=== PATIENT | female | born 1985 | race Caucasian/White ===

== ENCOUNTER 2016-11-20 07:02 | Day surgery (SDC) | payer MEDICARE ==
[~2016-11-20 07:02] MED LIST: ASCORBIC ACID500 MG PO; BACTRIM DS TABL1 TAB PO; BENADRYL25 MG PO; BENTYL 20 MG TA20 MG PO; COUMADIN5 MG PO; DIOVAN80 MG PO; FERROUS SULFAT325 MG PO; FOLIC ACID1 MG PO; HYDROCODON-ACE1 EAC7 PO; IMURAN50 MG PO; LEVAQUIN250 MG PO; LEVAQUIN750 MG PO; LOVENOX40 MG/0.4 SC; MAG-OX 400 MG400 MG PO; NEORAL25 MG PO; NORMODYNE / TR200 MG PO; PERCOCET 5-3251 TAB PO; PREDNISONE5 MG PO; RENA-VITE TABL0.8 MG PO; RENAGEL800 MG PO; ROCALTROL0.25 MCG PO; SANDIMMUNE25 MG PO; SODIUM BICARBO650 MG PO; TRAZODONE HCL50 MG PO; VITAMIN B-12500 MC1 PO; VITAMIN D3400 UNI1 PO; VIVA DHA PRENAT1 CAP PO; ZETIA10 MG PO; ZOFRAN4 MG PO
[2016-11-20 08:07] LABS: BASOPHILS 0.2 % (0-2); EOSINOPHILS 2.7 % (0-7); HEMATOCRIT 30.1 % (36.0-48.0); IMMATURE GRANULOCYTES 1.4 % (0-5); LYMPHOCYTES 22.4 % (15-50); MCH 31.7 pg (26.0-34.0); MCHC 33.2 g/dL (31.0-37.0); MCV 95.6 fL (80.0-100.0); MEAN PLATELET VOLUME 8.3 fL (7.4-10.4); MONOCYTES 6.6 % (2-11); NEUTROPHILS 66.7 % (40-80); RBC 3.15 10x6/uL (4.00-5.40); RDW 13.1 % (11.5-14.5); WBC 12.6 10x3/uL (4.8-10.8)
[2016-11-20 08:12] LABS: PLATELET COUNT 326 10x3/uL (130-400)
[2016-11-20 08:21] LABS: INR 0.94 (0.85-1.17); PROTIME 12.4 SECONDS (11.6-15.0)
[2016-11-20 09:03] LABS: ANION GAP 20.9 mmol/L (8-16); CALCIUM 9.8 mg/dL (8.5-10.1); CARBON DIOXIDE 22.4 mmol/L (21.0-32.0); CREATININE - SERUM 13.7 mg/dL (0.6-1.3); POTASSIUM - SERUM 3.3 mmol/L (3.5-5.1)
[2016-11-20] MEDS ORDERED: HUMIRA20 MG/0.4 SQ (10:04)
[2016-11-20] MEDS ORDERED: K-TAB10 MEQ PO (10:05)
[2016-11-20] MEDS ORDERED: CELEXA10 MG PO (10:05)
[2016-11-20 10:14] VITALS: BP 140/90; BMI 37.5
[2016-11-20 10:36] LABS: HCG URINE NEGATIVE (NEGATIVE)
[2016-11-20] MEDS ORDERED: HYDROCODON-ACE1 EAC7 PO (17:17)
--- NOTE | 2016-11-20 19:23 | NUR ---
1845 IV DC WITH CATHER TIP INTACT
--- NOTE | 2016-11-24 09:36 | OP ---
PATIENT NAME: YADI FLORES MEDICAL RECORD: [id number] :84 LOCATION:[facility] ADMISSION DATE: SURGEON: JENELLE ISRAEL MD DATE OF OPERATION: 11/20/2016 PREOPERATIVE DIAGNOSES: End-stage renal disease and dependence on renal dialysis and chronically infected peritoneal dialysis catheter. OPERATION PERFORMED: Ultrasound-guided insertion of a 23-cm Arrow VectorFlow tunneled dialysis catheter under fluoroscopy via the left internal jugular vein and performance of a superior vena cavogram and then removal of infected peritoneal dialysis catheter. REFERRING PHYSICIAN: Dr. Huang SURGEON: Jenelle Israel MD PREOPERATIVE NOTE: Ms. Flores is a delightful 31-year-old white female, patient of Dr. Huang, who has end-stage renal disease and is on chronic peritoneal dialysis and has had multiple failures of attempts to create hemodialysis access. She has very small vessels and is rather obese, both of which complicate her problem. Fortunately, she has done quite well with peritoneal dialysis and at present is losing weight quite successfully in order to be a candidate for a kidney transplant. Her peritoneal dialysis has been recently complicated by staphylococcal infection and despite several courses of antibiotic therapy, she continues to have positive culture from her dialysis catheter. It is believed that this catheter will need to be removed and replaced in order to clear her infection. I am reluctant to remove her catheter and simply place another one at the same procedure and so I have told her that if possible I will place a hemodialysis catheter and she can do hemodialysis for a week or two and then depending on culture results from today's procedure and her clinical course, she can be returned to the operating room for a laparoscopic insertion of a new peritoneal dialysis catheter. DESCRIPTION OF PROCEDURE: Under general endotracheal anesthesia, the patient was prepped and draped in sterile manner. The neck was examined with the ultrasound. The right internal jugular vein is sclerotic and not usable from a supraclavicular approach at least. The left internal jugular vein was fully compressible, of normal caliber, and generally normal appearance sonographically. With continuous ultrasound guidance, a micropuncture needle and guidewire were placed in the internal jugular vein and under fluoroscopy, the guidewire advanced to the superior vena cava. A 7-Albanian introducer was inserted and a superior vena cavogram performed, which revealed no evidence of central venous obstruction or abnormal anatomy. Then over a guidewire, I passed dilators and eventually placed a 23-cm antegrade Arrow VectorFlow catheter. The tip of the catheter reached into the right atrium and both lumens functioned well on aspiration and flushing. The catheter was heparin locked. The cervical incision was closed with interrupted inverted 3-0 Vicryl and Dermabond glue and dressed with Maxorb Ag, Tegaderm, and Cavilon skin prep. The entry site was snugged up about the catheter with a single interrupted inverted 3-0 subcuticular Vicryl suture and the site there also sealed with glue and then dressed with a Biopatch and a standard central venous line dressing. The patient was then reprepped and redraped. The peritoneal dialysis catheter was palpated. An incision made vertically above the exit site and dissection OPERATIVE REPORT [id number] KATJA FLORESJaun Candelaria both blunt and electrocautery dissection was used to free the most superficial Dacron felt cuff from the skin and surrounding fatty tissues. There was no evidence of any purulence or infection along the deeper tract of the catheter. The deeper Dacron felt cuff was dissected from the rectus sheath and the catheter removed without difficulty. The deeper of the 2 Dacron felt cuffs was a bit slippery if not grossly slimy. There was no other evidence of infection. I did cut out that segment, which was about an inch in length, and sent it to the laboratory for culture. The fascial defect was closed with a [id number]-[id number] 0 Vicryl suture and the wound irrigated with Ancef-gentamicin solution and infiltrated with 0.25% Marcaine without epinephrine. The skin was closed with aleena and a sterile dressing applied. The patient was awakened from her anesthetic and taken to the recovery room. Blood loss during the operation was insignificant and unreplaced. All sponges, instruments, and needles were accounted for. No drain was used and no surgical specimen was submitted for histopathology. A short segment of the catheter, which included the deeper of the 2 Dacron felt cuffs, was sent for culture. Yadi will go home today and come back to see me in my office next week. We will arrange for her to start having hemodialysis in [place]. A chest x-ray has been requested in the recovery room and also will be keeping the head of her bed elevated and using an icepack on the right side of her neck off and on for the next few hours. She is given a prescription for [address] 5/325 ten tablets 1 p.o. every 4 hours p.r.n. pain. TRANSINT:[id number] Voice Confirmation ID: [id number] DOCUMENT ID: [id number] JENELLE ISRAEL MD at 0936 CC: LADAN CARCAMO MD and MINDY HUANG MD [id number] DICTATION DATE: 11/21/16 1008 PLATE AND FRAME FILTER OPERATOR: 11/21/16 1138 [facility] 11/20/[address] [address]
== END 2016-11-20 19:00 | disposition home or self-care (01) ==
LOC: D.OPS 07:02
PROVIDERS: Internal Medicine; Surgery
DX: T85.71XA Infection and inflammatory reaction due to peritoneal dialysis catheter, initial encounter (principal); B95.8 Unspecified staphylococcus as the cause of diseases classified elsewhere; N18.6 End stage renal disease; Z99.2 Dependence on renal dialysis; Z01.812 Encounter for preprocedural laboratory examination

== ENCOUNTER 2016-12-01 06:34 | Day surgery (SDC) | payer MEDICARE ==
[~2016-12-01 06:34] MED LIST changes: +CELEXA10 MG PO; +HUMIRA20 MG/0.4 SQ; +K-TAB10 MEQ PO
[2016-12-01 07:32] LABS: BASOPHILS 0.2 % (0-2); HEMATOCRIT 28.7 % (36.0-48.0); HEMOGLOBIN 9.4 g/dL (12-16); IMMATURE GRANULOCYTES 1.9 % (0-5); LYMPHOCYTES 20.3 % (15-50); MCH 32.9 pg (26.0-34.0); MCHC 32.8 g/dL (31.0-37.0); MCV 100.3 fL (80.0-100.0); MEAN PLATELET VOLUME 8.5 fL (7.4-10.4); MONOCYTES 6.7 % (2-11); NEUTROPHILS 68.9 % (40-80); RBC 2.86 10x6/uL (4.00-5.40); RDW 14.2 % (11.5-14.5); WBC 11.3 10x3/uL (4.8-10.8)
[2016-12-01 07:44] LABS: PLATELET COUNT 167 10x3/uL (130-400)
[2016-12-01 07:45] LABS: ANION GAP 14.3 mmol/L (8-16); CALCIUM 8.6 mg/dL (8.5-10.1); CARBON DIOXIDE 25.7 mmol/L (21.0-32.0); CREATININE - SERUM 6.2 mg/dL (0.6-1.3)
[2016-12-01 07:53] LABS: APTT 25.7 SECONDS (22.8-39.4)
[2016-12-01 09:03] VITALS: BP 120/69; BMI 37.3
[2016-12-01 09:07] LABS: HCG URINE NEGATIVE (NEGATIVE)
[2016-12-01] MEDS ORDERED: HYDROCODON-ACE1 EAC7 PO (12:36)
--- NOTE | 2016-12-01 14:19 | NUR ---
1345 IV DC WITH CATHER TIP INTACT
--- NOTE | 2016-12-01 14:20 | NUR ---
SPOKE WITH KWAN IVTAL ABOUT ORDERS
--- NOTE | 2016-12-04 08:26 | OP ---
PATIENT NAME: TRINIDAD FLORES MEDICAL RECORD: [id number] :84 LOCATION:[facility] ADMISSION DATE: SURGEON: JENELLE ISRAEL MD DATE OF OPERATION: 12/01/2016 PREOPERATIVE DIAGNOSES: End-stage renal disease and dependence on renal dialysis and polycystic kidney disease and hypertension and recent chronic infection of peritoneal dialysis catheter. POSTOPERATIVE DIAGNOSES: End-stage renal disease and dependence on renal dialysis and polycystic kidney disease and hypertension and recent chronic infection of peritoneal dialysis catheter. OPERATION PERFORMED: Laparoscopic insertion of peritoneal dialysis catheter. SURGEON: Jenelle Israel MD ANESTHESIA: General endotracheal per [facility] [employer] [employer]. REFERRING PHYSICIAN: Dr. Huang. PREOPERATIVE NOTE: Ms. Flores is a delightful 31-year-old white female patient with end-stage renal disease due to polycystic kidneys. She is obese and has small vessels, which have estimated difficult to construct a reliable hemodialysis access and all of this was complicated by a factor V Leiden thrombophilia. She has been doing well with peritoneal dialysis until the last few months when she had a persistent chronic staphylococcal infection, which did not resolve with several course of antibiotics. 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 She had a chronic axillary hidradenitis suppurativa. All that seems to be in much better now on Humira, but she really probably has never been cleared of staph. About 10 days ago, I operated her and removed her peritoneal catheter and did not replace at that time. I placed a HemoSplit internal jugular tunneled dialysis catheter, so that she could dialyze with that and abdomen have a little longer to clear. Cultures of the deep Dacron felt cuff from the recently removed, catheter did grow staph. There was at that time, there were no other visual or other evidence of infection within the abdomen. She has done well since then and now she is back. We are going to try to put in another PD catheter on the left side of her abdomen, although I do not plan to remove her HemoSplit catheter yet. She states that she has been told by Dr. Huang that she can begin 1000 cc low volume frequent peritoneal exchanges as early as tomorrow. I will wait and have her back to see me at [facility] about a week from this coming Wednesday, which should I think 12/10/2016 and if she is doing well at that time and not having problems with peritoneal dialysis, then I will remove her HemoSplit catheter there at [facility]. The patient was administered general endotracheal anesthesia, placed in supine position, prepped, draped in sterile manner. I entered the abdomen with the Optiview XL type 5-mm port and a 0-degree 5 mm diameter laparoscope in the right upper quadrant. A carbon dioxide was utilized to insufflate the abdomen and after that, a 30 degree angle and 5-mm scope was utilized and I was pleased to see that there were still no adhesions visible within the abdomen and that the site of the previous peritoneal dialysis catheter was healing well without evidence of infection grossly. I then made an incision on the left side just above the level of the umbilicus and about mid rectus and inserted a needle and OPERATIVE REPORT [id number] TRINIDAD FLORES guidewire directed inferiorly at an angle and then inserted a dilator peel-away introducer sheath and took a left-sided [place] neck dual cuff coil catheter inserted it through the peelaway sheath and removed the sheath. Using a hemostat, I then placed the deeper of the Dacron felt cuff in the substance of the rectus muscle just anterior to the peritoneum and it proved unnecessary to utilize another laparoscopic port. The exit site for the catheter was to be located lateral and somewhat superior to the original incision and the catheter was tunneled and brought out in that manner. It was flushed with saline and aspirated and seemed to function well. It was then filled with heparin lock solution 100 units per cc clamped and capped. The catheter was fixed to the skin near the entry site with quarter inch Steri-Strips and Mastisol and that site dressed with a Biopatch and Tegaderm and 4 x 4s Medipore Band-Aid dressing. The ports were removed and the incisions closed with interrupted inverted 3-0 Vicryl subcuticular sutures, but that was after the wounds were infiltrated and irrigated with 0.25% Marcaine. The incisions were sealed with Dermabond glue and dressed with Maxorb Ag, Tegaderm and Cavilon skin prep. The patient's HemoSplit catheter was undressed and examined and the site then dressed with a Biopatch and a central venous dressing. The patient was awakened and in stable condition, taken to the recovery room. Blood loss during the operation was trivial, none was replaced. All sponges, instruments and needles were accounted for. No drain was used and no surgical specimen was submitted for histopathology. TRANSINT:[id number] Voice Confirmation ID: [id number] DOCUMENT ID: [id number] JENELLE ISRAEL MD at 0826 CC: MINDY HUANG MD [id number] DICTATION DATE: 12/01/16 1231 INVESTMENT SALES ASSISTANT: 12/01/16 [facility] 12/01/16 [address] [place] [address]
== END 2016-12-01 14:15 | disposition home or self-care (01) ==
LOC: D.OPS 06:34
PROVIDERS: Internal Medicine; Surgery
DX: I12.0 Hypertensive chronic kidney disease with stage 5 chronic kidney disease or end stage renal disease (principal); N18.6 End stage renal disease; Z99.2 Dependence on renal dialysis; E66.01 Morbid (severe) obesity due to excess calories; Z68.37 Body mass index [BMI] 37.0-37.9, adult; Z01.812 Encounter for preprocedural laboratory examination

== ENCOUNTER 2017-12-09 16:29 | Inpatient (IN) | payer MEDICARE ==
[~2017-12-09] VITALS: Ht 152.4 cm; Wt 93.9 kg
--- NOTE | ~2017-12-09 | MORECARE ---
CASE MANAGEMENT DISCHARGE SUMMARY PATIENT: TRINIDAD FLORES UNIT: [id number] ADM DATE: 12/11/17 AGE: 32 : 84 SEX: F ROOM/BED: D.2134 AUTHOR: LARRY PERSAUD PHYSICIAN: REFERRING PHYSICIAN: BHAKTI GUEVARA MD DATE OF SERVICE: 12/12/17 Discharge Plan Patient Name: TRINIDAD FLORES [facility] [facility] 1985 Planned Disposition: Home Anticipated Discharge Date: 12/12/17 Discharge Date: Expected LOS: 1 Initial Reviewer: [email or web address] Initial Review Date: 12/09/2017 Generated: 12/12/17 5:15 pm DCPIA - Discharge Planning Initial Assessment Updated by [email or web address]: Mariana Flanagan on 12/12/17 4:14 pm * Is the patient Alert and Oriented? Yes * PCP NONE RENAL - DR GAGNON * Pharmacy [facility] IN [place] * Preadmission Environment Home with Family * ADLs Independent * Equipment Other * Other Equipment HOME PD EQUIPMENT * List name and contact numbers for known caregivers / representatives who currently or will assist patient after discharge: ISAAK FLORES- FATHER- [phone] * Verbal permission to speak to the caregivers and representatives has been obtained from the patient. No * Community resources currently utilized None * Please name any agencies selected above. N/A * Additional services required to return to the preadmission environment? No * Can the patient safely return to the preadmission environment? Yes * Has this patient been hospitalized within the prior 30 days at any hospital? No Last DP export: 12/12/17 3:08 Patient Name: TRINIDAD FLORES Page [id number] at 1615 All edits/amendments must be made on the electronic document DICTATION DATE: 12/12/171614 HOME CARE CONSULTANT: CLARIBEL 12/12/17 161 RPT#: [id number] DC DATE: STATUS: ADM IN [facility] [address] [place] [address] END OF REPORT
--- NOTE | ~2017-12-09 | MORECARE ---
CASE MANAGEMENT DISCHARGE SUMMARY PATIENT: TRINIDAD FLORES UNIT: [id number] ADM DATE: 12/11/17 AGE: 32 : 84 SEX: F ROOM/BED: D.7485 AUTHOR: CORIDOC PHYSICIAN: REFERRING PHYSICIAN: BHAKTI GUEVARA MD DATE OF SERVICE: 12/13/17 Discharge Plan Patient Name: TRINIDAD FLORES Facility[facility]:[place] : 1985 Planned Disposition: Home Anticipated Discharge Date: 12/12/17 Discharge Date: 12/12/2017 Expected LOS: 1 Initial Reviewer: [email or web address] Initial Review Date: 12/09/2017 Generated: 12/13/17 10:24 am Comments DCP- Discharge Planning Updated by [email or web address]: Mariana Flanagan on 12/12/17 3:[address] LATE ENTRY- 1300 CM MET WITH THE PATIENT AT HER BEDSIDE. SHE WAS HAVING LUNCH. PLANNING FOR DISCHARGE TO HOME. HAS SPOKEN WITH HER BOYFRIEND REGARDING TRANSPORTATION. SHE IA A PD PATIENT AT [facility]. DR GAGNON FOLLOW HER FOR RENAL. DENIES ANY NEEDS. FAMILY AND HER BOYFRIEND ASSIST IF NEEDED. SHE IS INDEPENDENT IN HER CARE. NO OUTSIDE SERVICES REQUIRED. SHE HAS ARRANGED TRANSPORTATION TO HOME THIS PM. DISCUSSED DISCHARGE IMM. SHE IS COGNIZANT OF IMM FORM. 1320 SIGNATURE OBTAINED AFTER HER LUNCH. COPY TO PATIENT. COPY TO PATIENT'S HARD CHART. DCPIA - Discharge Planning Initial Assessment Updated by [email or web address]: Mariana Flanagan on 12/12/17 4:14 pm * Is the patient Alert and Oriented? Yes * PCP NONE RENAL - DR GAGNON * Pharmacy [facility] IN [place] * Preadmission Environment Home with Family * ADLs Independent * Equipment Other * Other Equipment HOME PD EQUIPMENT * List name and contact numbers for known caregivers / representatives who currently or will assist patient after discharge: ISAAK FLORES- FATHER- [phone] * Verbal permission to speak to the caregivers and representatives has been obtained from the patient. No * Community resources currently utilized None * Please name any agencies selected above. N/A * Additional services required to return to the preadmission environment? No * Can the patient safely return to the preadmission environment? Yes * Has this patient been hospitalized within the prior 30 days at any hospital? No Last DP export: 12/12/17 3:22 Patient Name: TRINIDAD FLORES Page [id number] at 0924 All edits/amendments must be made on the electronic document DICTATION DATE: 12/13/17922 FUNERAL DIRECTOR AND EMBALMER: CLARIBEL 12/13/17922 RPT#: [id number] DC DATE:12/12/17 STATUS: DIS IN [facility] [address] [place] [address] END OF REPORT
--- NOTE | ~2017-12-09 | MORECARE ---
CASE MANAGEMENT DISCHARGE SUMMARY PATIENT: TRINIDAD FLORES UNIT: [id number] ADM DATE: 12/11/17 AGE: 32 : 84 SEX: F ROOM/BED: D.5890 AUTHOR: LARRY PERSAUD PHYSICIAN: REFERRING PHYSICIAN: BAHKTI GUEVARA MD DATE OF SERVICE: 12/12/17 Discharge Plan Patient Name: TRINIDAD FLORES Facility: [facility]:[place] : 1985 Planned Disposition: Home Anticipated Discharge Date: 12/12/17 Discharge Date: Expected LOS: 1 Initial Reviewer: [email or web address] Initial Review Date: 12/09/2017 Generated: 12/12/17 5:22 pm Comments DCP- Discharge Planning Updated by [email or web address]: Mariana Flanagan on 12/12/17 3:[address] LATE ENTRY- 1300 CM MET WITH THE PATIENT AT HER BEDSIDE. SHE WAS HAVING LUNCH. PLANNING FOR DISCHARGE TO HOME. HAS SPOKEN WITH HER BOYFRIEND REGARDING TRANSPORTATION. [facility] DR GAGNON FOLLOW HER FOR RENAL. DENIES ANY NEEDS. FAMILY AND HER BOYFRIEND ASSIST IF NEEDED. SHE IS INDEPENDENT IN HER CARE. NO OUTSIDE SERVICES REQUIRED. SHE HAS ARRANGED TRANSPORTATION TO HOME THIS PM. DISCUSSED DISCHARGE IMM. SHE IS COGNIZANT OF IMM FORM. 1320 SIGNATURE OBTAINED AFTER HER LUNCH. COPY TO PATIENT. COPY TO PATIENT'S HARD CHART. DCPIA - Discharge Planning Initial Assessment Updated by [email or web address]: Mariana Flanagan on 12/12/17 4:14 pm * Is the patient Alert and Oriented? Yes * PCP NONE RENAL - DR GAGNON * Pharmacy [facility] IN [place] * Preadmission Environment Home with Family * ADLs Independent * Equipment Other * Other Equipment HOME PD EQUIPMENT * List name and contact numbers for known caregivers / representatives who currently or will assist patient after discharge: ISAAK FLORES- FATHER- [phone] * Verbal permission to speak to the caregivers and representatives has been obtained from the patient. No * Community resources currently utilized None * Please name any agencies selected above. N/A * Additional services required to return to the preadmission environment? No * Can the patient safely return to the preadmission environment? Yes * Has this patient been hospitalized within the prior 30 days at any hospital? No Last DP export: 12/12/17 3:15 Patient Name: TRINIDAD FLORES Page [phone] at 1622 All edits/amendments must be made on the electronic document DICTATION DATE: 12/12/171620 RIVET MACHINE OPERATOR: CLARIBEL 12/12/171620 RPT#: [id number] DC DATE: STATUS: ADM IN [facility] [address] [place] [address] END OF REPORT
--- NOTE | ~2017-12-09 | MORECARE ---
CASE MANAGEMENT DISCHARGE SUMMARY PATIENT: TRINIDAD FLORES UNIT: [id number] ADM DATE: 12/11/17 AGE: 32 : 83 SEX: F ROOM/BED: D.2134 AUTHOR: LARRY PERSAUD PHYSICIAN: REFERRING PHYSICIAN: BHAKTI GUEVARA MD DATE OF SERVICE: 12/12/17 Discharge Plan Patient Name: TRINIDAD FLORES Facility: [facility]:[place] : 1985 Planned Disposition: Home Anticipated Discharge Date: 12/12/17 Discharge Date: Expected LOS: 1 Initial Reviewer: [email or web address] Initial Review Date: 12/09/2017 Generated: 12/12/17 5:08 pm Patient Name: TRINIDAD FLORES Page [phone] at 1608 All edits/amendments must be made on the electronic document DICTATION DATE: 12/12/171607 WOOD BARREL RECONDITIONER: CLARIBEL 12/12/171607 RPT#: [id number] DC DATE: STATUS: ADM IN [facility] [address] [place] [address] END OF REPORT
[2017-12-09 17:26] VITALS: BP 136/84
[2017-12-09] MEDS ORDERED: PREDNISONE2.5 MG PO (19:37)
[2017-12-09 20:49] VITALS: BP 135/85
[2017-12-10 01:18] VITALS: BP 127/83
[2017-12-10 05:47] LABS: HEMATOCRIT 25.2 % (36.0-48.0); HEMOGLOBIN 8.3 g/dL (12-16); LYMPHOCYTES 17.1 % (15-50); MCH 30.1 pg (26.0-34.0); MCHC 32.9 g/dL (31.0-37.0); MCV 91.3 fL (80.0-100.0); MEAN PLATELET VOLUME 8.1 fL (7.4-10.4); NEUTROPHILS 77.6 % (40-80); RBC 2.76 10x6/uL (4.00-5.40); RDW 13.7 % (11.5-14.5); WBC 6.8 10x3/uL (4.8-10.8)
[2017-12-10 05:48] LABS: PLATELET COUNT 305 10x3/uL (130-400)
[2017-12-10 05:55] LABS: CALCIUM 7.8 mg/dL (8.5-10.1); CARBON DIOXIDE 25.6 mmol/L (21.0-32.0); POTASSIUM - SERUM 3.6 mmol/L (3.5-5.1)
[2017-12-10 06:15] VITALS: BP 129/69
[2017-12-10 11:21] VITALS: BP 126/86
[2017-12-10 13:13] VITALS: BP 124/76
[2017-12-10 13:26] VITALS: Ht 152.4 cm; Wt 93.9 kg
[2017-12-10 14:49] VITALS: BP 131/85
[2017-12-10 19:22] LABS: EOS BF 1 %; MACROPHAGES BF 6 %; MESOTHELIALS BF 2 %; NEUT - BF 83 %
[2017-12-10 21:07] VITALS: BP 142/89
[2017-12-11] VITALS: BP 118/78
[2017-12-11 04:00] VITALS: BP 143/81
[2017-12-11 05:45] LABS: BASOPHILS 0.1 % (0-2); EOSINOPHILS 0.3 % (0-7); HEMATOCRIT 26.2 % (36.0-48.0); HEMOGLOBIN 8.5 g/dL (12-16); IMMATURE GRANULOCYTES 0.3 % (0-5); LYMPHOCYTES 5.4 % (15-50); MCH 29.6 pg (26.0-34.0); MCHC 32.4 g/dL (31.0-37.0); MCV 91.3 fL (80.0-100.0); MEAN PLATELET VOLUME 8.5 fL (7.4-10.4); MONOCYTES 4.5 % (2-11); NEUTROPHILS 89.4 % (40-80); PLATELET COUNT 346 10x3/uL (130-400); RBC 2.87 10x6/uL (4.00-5.40)
[2017-12-11 05:47] LABS: WBC 9.6 10x3/uL (4.8-10.8)
[2017-12-11 06:18] LABS: ANION GAP 18.7 mmol/L (8-16); CALCIUM 8.2 mg/dL (8.5-10.1); CARBON DIOXIDE 27.4 mmol/L (21.0-32.0); CREATININE - SERUM 14.4 mg/dL (0.6-1.3); POTASSIUM - SERUM 4.1 mmol/L (3.5-5.1); VANCOMYCIN - RANDOM 22.8 ug/mL (10.0-20.0)
[2017-12-11 09:04] VITALS: BP 162/86
[2017-12-11 13:05] VITALS: BP 159/87
[2017-12-11 15:57] VITALS: BP 159/103
[2017-12-11 21:06] VITALS: BP 144/90
[2017-12-12 01:00] VITALS: BP 147/86
[2017-12-12 05:17] LABS: BASOPHILS 0 % (0-2); EOSINOPHILS 1.8 % (0-7); HEMATOCRIT 22.2 % (36.0-48.0); IMMATURE GRANULOCYTES 0.3 % (0-5); LYMPHOCYTES 13.9 % (15-50); MCH 29.5 pg (26.0-34.0); MCV 92.1 fL (80.0-100.0); MEAN PLATELET VOLUME 8.2 fL (7.4-10.4); MONOCYTES 6.4 % (2-11); NEUTROPHILS 77.6 % (40-80); PLATELET COUNT 294 10x3/uL (130-400); RBC 2.41 10x6/uL (4.00-5.40); RDW 14.1 % (11.5-14.5); WBC 7.6 10x3/uL (4.8-10.8)
[2017-12-12 05:26] LABS: HEMOGLOBIN 7.1 g/dL (12-16)
[2017-12-12 05:39] LABS: ANION GAP 15.9 mmol/L (8-16); CALCIUM 8.2 mg/dL (8.5-10.1); CARBON DIOXIDE 28.5 mmol/L (21.0-32.0); CREATININE - SERUM 14.2 mg/dL (0.6-1.3); POTASSIUM - SERUM 4.4 mmol/L (3.5-5.1)
[2017-12-12 06:12] VITALS: BP 118/70
[2017-12-12 08:17] LABS: BASOPHILS 0.1 % (0-2); EOSINOPHILS 2.7 % (0-7); HEMATOCRIT 23.2 % (36.0-48.0); IMMATURE GRANULOCYTES 0.3 % (0-5); LYMPHOCYTES 18.3 % (15-50); MCH 30.1 pg (26.0-34.0); MCHC 32.3 g/dL (31.0-37.0); MCV 93.2 fL (80.0-100.0); MONOCYTES 6.1 % (2-11); NEUTROPHILS 72.5 % (40-80); PLATELET COUNT 260 10x3/uL (130-400); RBC 2.49 10x6/uL (4.00-5.40); RDW 14.2 % (11.5-14.5); WBC 7.3 10x3/uL (4.8-10.8)
[2017-12-12 08:19] LABS: HEMOGLOBIN 7.5 g/dL (12-16)
[2017-12-12 08:24] VITALS: BP 125/74
[2017-12-12 10:54] LABS: ALBUMIN 1.9 g/dL (3.4-5.0); BILIRUBIN - DIRECT 0.08 mg/dL (0.00-0.30); BILIRUBIN - INDIRECT 0.16 mg/dL (0.00-1.00); BILIRUBIN - TOTAL 0.24 mg/dL (0.2-1.3); PROTEIN - SERUM 5.9 g/dL (6.4-8.2)
[2017-12-12 11:08] VITALS: BP 145/84
[2017-12-12 16:14] VITALS: BP 149/99
[2017-12-17 17:13] LABS: AEROBE ID Final report (())
== END 2017-12-12 16:51 | disposition home or self-care (01) | DRG 919 ==
LOC: OBSVTIME → D.ER 16:29 → D.M2 18:19 → D.EDHOLD 18:19 → D.M2 18:19 → D.ER 18:19 → D.M2 18:36 → D.EDHOLD 18:36 → OBSVTIME 12-10 08:22 → D.M2 12-11 12:31
PROVIDERS: Emergency Medicine; Internal Medicine Nephrology
DX: T85.71XA Infection and inflammatory reaction due to peritoneal dialysis catheter, initial encounter (principal); K65.9 Peritonitis, unspecified; N18.6 End stage renal disease; I12.0 Hypertensive chronic kidney disease with stage 5 chronic kidney disease or end stage renal disease; Z94.0 Kidney transplant status; Y83.8 Other surgical procedures as the cause of abnormal reaction of the patient, or of later complication, without mention of misadventure at the time of the procedure; Z99.2 Dependence on renal dialysis

== ENCOUNTER 2018-11-15 20:41 | Inpatient (IN) | payer MEDICARE ==
[~2018-11-15] VITALS: Ht 152.4 cm; Wt 99.2 kg
[~2018-11-15 20:41] MED LIST changes: +PREDNISONE2.5 MG PO
--- NOTE | 2018-11-15 22:18 | NUR ---
PT REPORTS SHE HAS BEEN ANURIC FOR "A WHILE"
[2018-11-15 22:23] LABS: INR 1.61 (0.85-1.17); PROTIME 18.5 SECONDS (11.6-15.0)
[2018-11-15 22:24] LABS: HEMATOCRIT 27.2 % (36.0-48.0); MCHC 33.1 g/dL (31.0-37.0); MCV 90.7 fL (80.0-100.0); MEAN PLATELET VOLUME 9.2 fL (7.4-10.4); RDW 14.7 % (11.5-14.5); WBC 13.2 10x3/uL (4.8-10.8)
[2018-11-15 22:26] LABS: PLATELET COUNT 368 10x3/uL (130-400)
[2018-11-15 22:45] LABS: ALBUMIN 2.1 g/dL (3.4-5.0); BILIRUBIN - TOTAL 0.55 mg/dL (0.2-1.3); CARBON DIOXIDE 21.4 mmol/L (21.0-32.0); MAGNESIUM - SERUM 2.4 mg/dL (1.8-2.4); PROTEIN - SERUM 6.4 g/dL (6.4-8.2)
[2018-11-15 22:47] LABS: ANION GAP 25.1 mmol/L (8-16); CREATININE - SERUM 25.7 mg/dL (0.6-1.3)
[2018-11-15 22:49] LABS: PHOSPHOROUS 12.8 mg/dL (2.5-4.9); POTASSIUM - SERUM 6.5 mmol/L (3.5-5.1)
[2018-11-15 22:50] LABS: CALCIUM 6.6 mg/dL (8.5-10.1)
[2018-11-15 22:53] LABS: EOSINOPHILS 1 % (0-7); LYMPHOCYTES 10 % (15-50); MONOCYTES 1 % (2-11); NEUTROPHILS 87 % (40-80); PLATELET ESTIMATE NORMAL
[2018-11-16] VITALS (91 sets, daily range): BP systolic 94–206; BP diastolic 58–119; Ht 152.4 cm; Wt 99.2 kg
[2018-11-16] MEDS ORDERED: PERCOCET 5-3251 TAB PO (02:00)
--- NOTE | 2018-11-16 02:51 | NUR ---
PT RECEIVED TO UNIT AT 0115 FROM ED ON STRETCHER WITH RNX1. PT TRANSFERS SELF TO ICU BED WITHOUT DIFFICULTY. PT RECEIVING NIPRIDE. PT ALERT AND ORIENTED. ASSESSMENT, HX, AND MED REC COMPLETED. TITRATING NIPRIDE TOLERATED. WILL CONTINUE TO OBSERVE.
[2018-11-16 04:23] LABS: CARBON DIOXIDE 19.9 mmol/L (21.0-32.0)
[2018-11-16 04:24] LABS: ANION GAP 28.8 mmol/L (8-16); CREATININE - SERUM 25.6 mg/dL (0.6-1.3)
[2018-11-16 04:26] LABS: CALCIUM 6.3 mg/dL (8.5-10.1); POTASSIUM - SERUM 6.7 mmol/L (3.5-5.1)
--- NOTE | 2018-11-16 07:00 | NUR ---
BEDSIFT COMPLETED AT BEDSIDE, ASSESSMENT COMPLETED. PT CARE ASSUMED. MONITORS ON AND WORKING, PT AWAKE AND ALERT, CALL LIGHT WITHIN REACH, WILL CONTINUE TO OBSERVE.
--- NOTE | 2018-11-16 07:47 | NUR ---
PT STATED THAT SHE GOT NAUSEATED WITH KAYEXELATE IN ER. PT GIVEN ZOFRAN AND BEGAN VOMITING WHEN TAKING NEWEST DOSE. REPORTED TO ONCOMING STAFF.
[2018-11-16 09:00] LABS: BASOPHILS 0.1 % (0-2); EOSINOPHILS 0.2 % (0-7); HEMATOCRIT 26.2 % (36.0-48.0); HEMOGLOBIN 8.8 g/dL (12-16); IMMATURE GRANULOCYTES 1.7 % (0-5); MCH 30.1 pg (26.0-34.0); MCHC 33.6 g/dL (31.0-37.0); MCV 89.7 fL (80.0-100.0); MEAN PLATELET VOLUME 9.1 fL (7.4-10.4); MONOCYTES 5.2 % (2-11); NEUTROPHILS 87.8 % (40-80); PLATELET COUNT 349 10x3/uL (130-400); RBC 2.92 10x6/uL (4.00-5.40); RDW 15.4 % (11.5-14.5); WBC 12.5 10x3/uL (4.8-10.8)
--- NOTE | 2018-11-16 09:00 | NUR ---
PT SITTING UP IN BED, PT AWAKE AND ALERT, MONITORS ON AND WORKING, VITALS STABLE. CALL LIGHT WITHIN REACH, WILL CONTINUE TO OBSERVE.
[2018-11-16 09:13] LABS: ANION GAP 26.1 mmol/L (8-16); CARBON DIOXIDE 21.6 mmol/L (21.0-32.0); POTASSIUM - SERUM 5.7 mmol/L (3.5-5.1)
[2018-11-16 09:14] LABS: CREATININE - SERUM 26.2 mg/dL (0.6-1.3)
[2018-11-16 09:15] LABS: AMYLASE - SERUM 38 U/L (25-115); LIPASE 563 U/L (73-393)
[2018-11-16 09:16] LABS: CALCIUM 6.9 mg/dL (8.5-10.1)
--- NOTE | 2018-11-16 11:00 | NUR ---
PT REPOSITIONS SELF FOR COMFORT. PD ORDERED Q4. MONITORS ON AND WORKING, VITALS STABLE. CALL LIGHT WITHIN REACH, WILL CONTINUE TO OBSERVE.
--- NOTE | 2018-11-16 13:00 | NUR ---
PD GIVEN, PT HEART RATE INCREASED, PD STOPPED AND DRAINED AT THIS TIME, EKG OBTAINED. HEAD OF BUSINESS DEVELOPMENT NOTIFIED, PT AWAKE AND ALERT, DENIES ANY COMPLAINTS OF PAIN OR DISCOMFORT AT THIS TIME. N/V SUBSIDED. CALL LIGHT WITHIN REACH, WILL CONTINUE TO OBSERVE.
[2018-11-16 14:27] LABS: NEUT - BF 85 %
--- NOTE | 2018-11-16 15:00 | NUR ---
HEART RATE CONTINUES TO REMAIN IN NORMAL SINUS, PT AWAKE AND ALERT, MONITORS ON AND WORKING, VITALS STABLE. CALL LIGHT WITHIN REACH, WILL CONTINUE TO OBSERVE. SEE FLOW SHEET FOR FURTHER DETAILS.
--- NOTE | 2018-11-16 17:00 | NUR ---
PD GIVEN AT THIS TIME, PT TOLERATED WELL, MONITORS ON AND WORKING, VITALS STABLE. CALL LIGHT WITHIN REACH, NO SIGNS/SYMPTOMS OF PAIN OR DISCOMFORT NOTED AT THIS TIME. WILL CONTINUE TO OBSERVE.
[2018-11-16 18:19] LABS: ANION GAP 29.4 mmol/L (8-16); CARBON DIOXIDE 18.6 mmol/L (21.0-32.0)
[2018-11-16 18:21] LABS: CREATININE - SERUM 26.1 mg/dL (0.6-1.3)
[2018-11-16 18:24] LABS: CALCIUM 6.6 mg/dL (8.5-10.1)
--- NOTE | 2018-11-16 18:27 | MORECARE ---
CASE MANAGEMENT DISCHARGE SUMMARY PATIENT: TRINIDAD FLORES UNIT: [id number] ADM DATE: 11/16/18 AGE: 33 : 83 SEX: F ROOM/BED: D.2305 AUTHOR: CORI,DOC PHYSICIAN: REFERRING PHYSICIAN: CHE MCCOY DO DATE OF SERVICE: 11/16/18 Discharge Plan Patient Name: TRINIDAD FLORES Facility: [facility]:[place] : 1985 Planned Disposition: Home Anticipated Discharge Date: Discharge Date: Expected LOS: Initial Reviewer: [email or web address] Initial Review Date: 11/16/2018 Generated: 11/16/18 7:26 pm Comments DCP- Discharge Planning Updated by [email or web address]: Sonia Villarreal on 11/16/18 5:[address] Patient Name: TRINIDAD FLORES Admission Status: ER Accout number: [id number] Admission Date: 11-16-2018 : 1985 Admission Diagnosis: Attending: KIARRA Current LOS: 1 Anticipated DC Date: Planned Disposition: Home Primary Insurance: MEDICARE A & B Discharge Planning Comments: CM met with patient to complete initial dc planning assessment. CM educated patient on the CM role and verbal consent given by patient to complete assessment. Patient lives at home with her father where she is independent with her care. At discharge patient plans to return home and feels this is a safe discharge. CM discussed availability of home health, rehab services, and medical equipment. Patient is on daily PD. Patient denied known discharge needs at this time. CM will continue to follow and will assist as needed with dc plans/needs. Information Security Analyst: Sonia Villarreal DCPIA - Discharge Planning Initial Assessment Updated by [email or web address]: Sonia Villarreal on 11/16/18 6:21 pm * Is the patient Alert and Oriented? Yes * How many steps to enter\exit or inside your home? * PCP NO PCP - SEEN BY NEPHROLOGY * Pharmacy [facility] * Preadmission Environment Home with Family * ADLs Independent * Other Equipment PD SUPPLIES * List name and contact numbers for known caregivers / representatives who currently or will assist patient after discharge: ISAAK MARIE - FATHER- [phone] * Verbal permission to speak to the caregivers and representatives has been obtained from the patient. Yes * Community resources currently utilized None * Additional services required to return to the preadmission environment? No * Can the patient safely return to the preadmission environment? Yes * Has this patient been hospitalized within the prior 30 days at any hospital? No Patient Name: TRINIDAD FLORES Page [id number] at 1827 All edits/amendments must be made on the electronic document DICTATION DATE: 11/16/181825 SENIOR MATERIALS ANALYST: CLARIBEL 11/16/181825 RPT#: [id number] DC DATE: STATUS: ADM IN [facility] [address] [place] [address] END OF REPORT
--- NOTE | 2018-11-16 19:00 | NUR ---
BEDSIDE REPORT AND SHIFT ASSESSMENT COMPLETE. VSS, NO SIGNS OF ACUTE DISTRESS NOTED. PT C/O TENDERNESS IN ABD. ABD INCISION AND PD TUBE WNL. BILAT ARM FISTULAS NOT WORKING, L AC PIV WNL. DENIES NEEDS AT THIS TIME. CALL LIGHT IN REACH, WILL CONTINUE TO MONITOR.
--- NOTE | 2018-11-16 21:00 | NUR ---
MEDS GIVEN PER APR. PD COMPLETE WITH HELP FROM PT. WILL MONITOR.
--- NOTE | 2018-11-16 23:00 | NUR ---
REASSESSMENT COMPLETE. VSS, NO SIGNS OF ACUTE DISTRESS NOTED. CALL LIGHT IN REACH, WILL CONTINUE TO MONITOR.
[2018-11-17] VITALS (41 sets, daily range): BP systolic 131–211; BP diastolic 48–110
--- NOTE | 2018-11-17 01:00 | NUR ---
MEDS GIVEN PER MAR, PD STARTED. PT DENIES NEEDS AT THIS TIME, CALL LIGHT IN REACH. WILL CONTINUE TO MONITOR.
--- NOTE | 2018-11-17 03:00 | NUR ---
PT AWAKE WATCHING TV. REASSESSMENT COMPLETE, SEE FLOWSHEET. VSS, NO SIGNS OF ACUTE DISTRESS NOTED. WILL CONTINUE TO MONITOR.
[2018-11-17 04:21] LABS: BASOPHILS 0.1 % (0-2); HEMATOCRIT 28.2 % (36.0-48.0); HEMOGLOBIN 9.3 g/dL (12-16); IMMATURE GRANULOCYTES 1.8 % (0-5); LYMPHOCYTES 8.8 % (15-50); MEAN PLATELET VOLUME 8.8 fL (7.4-10.4); MONOCYTES 6.7 % (2-11); NEUTROPHILS 80.6 % (40-80); PLATELET COUNT 348 10x3/uL (130-400); RDW 15.4 % (11.5-14.5); WBC 10.2 10x3/uL (4.8-10.8)
--- NOTE | 2018-11-17 05:00 | NUR ---
MEDS GIVEN PER MAR PER PD TUBE. VSS, NO SIGNS OF ACUTE DISTRESS NOTED. CALL LIGHT IN REACH, WILL CONTINUE TO MONITOR.
[2018-11-17 05:03] LABS: CARBON DIOXIDE 21.4 mmol/L (21.0-32.0); GENTAMICIN - RANDOM 0.1 ug/mL (0.5-2.0); MAGNESIUM - SERUM 2.4 mg/dL (1.8-2.4); VANCOMYCIN - RANDOM 15.5 ug/mL (10.0-20.0)
[2018-11-17 05:16] LABS: ANION GAP 25.6 mmol/L (8-16); CALCIUM 6.3 mg/dL (8.5-10.1); CREATININE - SERUM 25.1 mg/dL (0.6-1.3); PHOSPHOROUS 11.4 mg/dL (2.5-4.9)
--- NOTE | 2018-11-17 07:00 | NUR ---
CALLED [employer] FOR PD BAGS, NOBODY ANSWERED. WILL TRY AGAIN.
--- NOTE | 2018-11-17 07:27 | NUR ---
PATIENT REPORT RECIEVED AT BEDSIDE. HOB 30. NO DISTRESS. LILLIANR BRE ORIENTED. DENIES NEEDS. CARDENE DRIP OFF. 143 BP. LUNGS CTA. UP TO BEDSIDE COMMODE WITH ASSISSTANCE. TURNS HERSELF. PULSES PALP BILAT. PINK EXTREMITIES. CAP REFILL LESS THAN 3 SEC. PERRL. WILL CONINTUE TO MONITOR.
--- NOTE | 2018-11-17 09:34 | NUR ---
DIALYSIS DRAINING. PATIENT IS SLEEPING. EASILY AROUSED. ALERT AND ORIENTED. NO DISTRESS. ROOM AIR. VSS. DENIES NEEDS AT THIS TIME. TURNED LIGHTS OFF. PROVIDED BLANKET. NEW PILLOW CASE. WILL CONTINUE TO MONITOR.
--- NOTE | 2018-11-17 11:20 | NUR ---
PATIENT IS RESTING. STATES SHE HAS SOME MILD CRAMPING IN ABDOMEN. NO DISTRESS. VSS. CARDENE DRIP HAS BEEN OFF. WILL CONTINUE TO MONITOR. BED LOW AND LOCKED. PATIENT TURNS HERSELF. ORAL CARE DONE. AGREED TO CHG BATH LATER IN THE DAY.
--- NOTE | 2018-11-17 13:00 | NUR ---
PATIENT IS SLEEPING. AROUSES EASILY TO VOICE. ALERT AND ORIENTED. NO CHANGES FROM ASSESSMENT. DISTRESS DENIED. DENIES NEEDS. VSS. PATIENT TURNED INDEPENDTLY.
--- NOTE | 2018-11-17 15:57 | NUR ---
ARRIVED FROM ICU VIA WC. NO APPARENT DISTRESS.
--- NOTE | 2018-11-17 23:12 | NUR ---
PT CARE ASSUMED. BEDSIDE SHIFT REPORT COMPLETE. PT A&O, RR EVEN AND UNLABORED ON RA. DENIES NEEDS AT THIS TIME. NO S/S OF DISTRESS NOTED. CALL LIGHT IN REACH. WILL CPOC.
[2018-11-18] VITALS: BP 199/103
[2018-11-18 04:00] VITALS: BP 174/92
[2018-11-18 05:13] LABS: BASOPHILS 0.1 % (0-2); HEMATOCRIT 27.6 % (36.0-48.0); HEMOGLOBIN 8.9 g/dL (12-16); IMMATURE GRANULOCYTES 2.5 % (0-5); LYMPHOCYTES 9.7 % (15-50); MCH 29.4 pg (26.0-34.0); MCHC 32.2 g/dL (31.0-37.0); MCV 91.1 fL (80.0-100.0); MEAN PLATELET VOLUME 9.2 fL (7.4-10.4); MONOCYTES 5.9 % (2-11); NEUTROPHILS 78.8 % (40-80); PLATELET COUNT 306 10x3/uL (130-400); RBC 3.03 10x6/uL (4.00-5.40); RDW 15.3 % (11.5-14.5); WBC 8.1 10x3/uL (4.8-10.8)
[2018-11-18 06:32] LABS: ANION GAP 24.1 mmol/L (8-16); CARBON DIOXIDE 21.6 mmol/L (21.0-32.0); GENTAMICIN - RANDOM 0.7 ug/mL (0.5-2.0); POTASSIUM - SERUM 4.7 mmol/L (3.5-5.1); VANCOMYCIN - RANDOM 28.9 ug/mL (10.0-20.0)
[2018-11-18 06:45] LABS: CREATININE - SERUM 23.6 mg/dL (0.6-1.3)
[2018-11-18 06:48] LABS: CALCIUM 6.3 mg/dL (8.5-10.1); PHOSPHOROUS 11.4 mg/dL (2.5-4.9)
--- NOTE | 2018-11-18 08:00 | NUR ---
PT LYING IN BED. EYES CLOSED. CHEST RISING AND FLALING. BED LOW. CL IN REACH.
[2018-11-18 08:32] VITALS: BP 154/69
--- NOTE | 2018-11-18 13:53 | NUR ---
Nutrition Follow-up: Pt reports not eating lunch today 2/2 nausea. Vomiting this AM. Diet: Renal Wt: 219# Last BM: 11/13 per pt Labs noted: K+ 4.7, PO4 11.4, Ca 6.3 Meds noted: Calcitriol, Renagel -Continue current diet as tolerated. -[employer] food preferences within diet restrictions. -RD following.
[2018-11-18 14:52] VITALS: BP 170/55
--- NOTE | 2018-11-18 17:43 | NUR ---
I have reviewed this patient and I concur with the Shift Assessment completed by the Licensed Practical Nurse today this shift.
--- NOTE | 2018-11-18 19:36 | NUR ---
REPORT RECIEVED AND ROUNDING COMPLETE. PATIENT SITTING UP IN BED, PATIENT IS A&O X4. PATIENT HAS A LEFT AC PIV THAT IS SALINE LOCKED. PATIENT STATES SHE HAS NO NEEDS AT THIS TIME. CALL LIGHT WITHIN REACH AND BED IN LOWEST LOCKED POSITION. PATIENT IS SHOWING NO S/SX OF DISTRESS AT THIS TIME.
[2018-11-18 20:00] VITALS: BP 214/79
[2018-11-19] VITALS: BP 182/41
[2018-11-19 04:00] VITALS: BP 144/40
[2018-11-19 05:05] LABS: BASOPHILS 0.1 % (0-2); EOSINOPHILS 3.9 % (0-7); HEMATOCRIT 27.6 % (36.0-48.0); HEMOGLOBIN 8.9 g/dL (12-16); IMMATURE GRANULOCYTES 1.8 % (0-5); LYMPHOCYTES 10.2 % (15-50); MCH 29.9 pg (26.0-34.0); MCHC 32.2 g/dL (31.0-37.0); MCV 92.6 fL (80.0-100.0); MEAN PLATELET VOLUME 9.3 fL (7.4-10.4); MONOCYTES 6.7 % (2-11); NEUTROPHILS 77.3 % (40-80); PLATELET COUNT 287 10x3/uL (130-400); RBC 2.98 10x6/uL (4.00-5.40); RDW 15.3 % (11.5-14.5); WBC 7.8 10x3/uL (4.8-10.8)
[2018-11-19 05:30] LABS: ANION GAP 22.6 mmol/L (8-16); CARBON DIOXIDE 23.6 mmol/L (21.0-32.0); POTASSIUM - SERUM 4.2 mmol/L (3.5-5.1)
[2018-11-19 05:35] LABS: CALCIUM 6.4 mg/dL (8.5-10.1); CREATININE - SERUM 21.8 mg/dL (0.6-1.3)
--- NOTE | 2018-11-19 07:00 | NUR ---
RECEIVED REPORT. ASSUMED CARE OF PATIENT. RESTING ON LEFT LATERAL SIDE WITH EYES OPEN. CALL LIGHT WITHIN REACH. DENIES NEEDS. RESP EVEN AND UNLABORED. DENIES NEEDS. PATIENT IS WONDERING IF SHE WILL GET TO GO HOME TODAY. THIS TURRET PRESS OPERATOR IS UNSURE AT THIS TIME.
--- NOTE | 2018-11-19 09:58 | NUR ---
TIME CHANGE REQUEST PLACED TO PHARMACY PD IS NOT DUE UNITL 10AM AND EVERY 4 HOURS THEREAFTER.
[2018-11-19 10:35] VITALS: BP 215/106
--- NOTE | 2018-11-19 11:13 | NUR ---
@ 1040 DURING THE FILLING PROCESS OF PD, THIS COFFEE TASTER HAD TO STEP OUT TO SPEAK WITH MD REGARDING ANOTHER PATIENT. THIS COFFEE TASTER WAS AWAY FROM PATIENT FOR 3 MINUTES AND WHEN THIS COFFEE TASTER RETURNED, PATIENTS PD BAG THAT WAS INFUSING WAS COMPLETELY EMPTY AND THE DRAINAGE BAG THAT WAS LYING ON THE FLOOR WAS ABOUT TO BUST. THE BAG APPEARED TO HAVE ALMOST TWICE MUCH FLUID IN THE DRAINAGE BAG WHEN THIS COFFEE TASTER RETURNED THAN WHEN THIS COFFEE TASTER STEPPED AWAY FROM PATIENT TO SPEAK TO MD. PATIENT STATES THAT THE CLAMP MUST HAVE COME LOOSE. EDUCATION PROVIDED TO PATIENT. NOT SURE HOW MUCH FLUID PATIENT WAS ACTUALLY FILLED WITH.. APPROXIMATE ESTIMATE OF 1800-1900ML IN BAG BEFORE STEPPING OUT OF ROOM. BAG WEIGHTED UPON RETURN, 2700 IN BAG.
[2018-11-19 12:50] VITALS: BP 179/90
--- NOTE | 2018-11-19 14:03 | NUR ---
NEW ORDERS RECEIVED FROM SHANNAN AUSTIN AT THIS TIME FOR BACTRIM TO TREAT THE PERITONITIS. ALSO LET HER KNOW WHAT HAPPENED WITH THE PD FLUID THIS AM AT 1030
--- NOTE | 2018-11-19 18:51 | NUR ---
WHILE PERFORMING DIALYSIS, THIS BEADING INSTALLER NOTICED ALOT OF AIR IN THE DRAIN TUBE, SO MUCH THAT THE DRAINAGE BAG WAS FILLING WITH AIR MORE THAN PD FLUID. ASSESSED THE LINES AND THE LINE TO THE BAG OF PD FLUID THAT WOULD HAVE BEEN USED FOR EXCHANGE HAD A CRACK IN THE LINE. ONCE THIS LINE WAS CLAMPED NO FURTHER BUBBLES WERE NOTED IN THE LINE AND PATIENT DRAINING. PATIENT DID NOT GET FILLED AT THIS TIME BECAUSE THIS BEADING INSTALLER HAD JUST PUT A BAG TO BE WARMED ON THE KPAD SO ALL THE PD FLUID IS COLD. PATIENT DUE FOR PD FLUID EXCHANGE IN FOUR HOURS. PATIENT STATED SHE WANTED TO WAIT UNTIL THE NEXT EXCHANGE DUE TO PREVENT CRAMPING FROM USING COOL PD FLUID.
--- NOTE | 2018-11-19 19:45 | NUR ---
PT RESTING IN BED ALERT AND OREINTED X4. NO S/S OF DISTRESS AT THIS TIME. BED LOW CALL LIGHT WITHIN REACH. WILL CONTINUE TO MONITOR.
[2018-11-19 20:00] VITALS: BP 171/112
--- NOTE | 2018-11-19 20:30 | NUR ---
PT BP-171/112. PRN HYDRALAZINE GIVEN. WILL CONTINUE TO MONITOR.
[2018-11-20 00:30] VITALS: BP 152/72
--- NOTE | 2018-11-20 00:31 | NUR ---
PT BP-152/72. NO S/S OF DISTRESS. WILL CONTINUE TO MONITOR.
--- NOTE | 2018-11-20 00:31 | NUR ---
PT RESTING IN BED WITH EYES CLOSED RR EVEN AND UNLABORED. PT DWELLING PD FLUID AT THIS TIME. BED LOW CALL LIGHT WITHIN REACH. WILL CONTINUE TO MONITOR.
--- NOTE | 2018-11-20 02:46 | NUR ---
PT PD CATH INITIATED. NO S/S OF DISTRESS. WILL CONTINUE TO MONITOR.
[2018-11-20 04:00] VITALS: BP 186/84
[2018-11-20 04:42] LABS: BASOPHILS 0.1 % (0-2); EOSINOPHILS 3.8 % (0-7); HEMATOCRIT 27.8 % (36.0-48.0); HEMOGLOBIN 9.2 g/dL (12-16); IMMATURE GRANULOCYTES 1.6 % (0-5); LYMPHOCYTES 12.5 % (15-50); MCH 30.7 pg (26.0-34.0); MCHC 33.1 g/dL (31.0-37.0); MCV 92.7 fL (80.0-100.0); MEAN PLATELET VOLUME 9.3 fL (7.4-10.4); MONOCYTES 6.8 % (2-11); NEUTROPHILS 75.2 % (40-80); PLATELET COUNT 252 10x3/uL (130-400); RDW 14.8 % (11.5-14.5); WBC 6.8 10x3/uL (4.8-10.8)
--- NOTE | 2018-11-20 04:54 | NUR ---
I have reviewed this patient and I concur with the Shift Assessment completed by the Licensed Practical Nurse today this shift.
[2018-11-20 05:03] LABS: CARBON DIOXIDE 23.7 mmol/L (21.0-32.0); POTASSIUM - SERUM 3.7 mmol/L (3.5-5.1)
[2018-11-20 05:04] LABS: CALCIUM 6.1 mg/dL (8.5-10.1); CREATININE - SERUM 20.7 mg/dL (0.6-1.3); PHOSPHOROUS 10.7 mg/dL (2.5-4.9)
--- NOTE | 2018-11-20 07:00 | NUR ---
RECEIVED REPORT. ASSUMED CARE OF PATIENT. RESTING ON LEFT LATERAL SIDE WITH EYES CLOSED. RESP EVEN AND UNLABORED. NO DISTRESS. CALL LIGHT WITHIN REACH.
[2018-11-20 07:51] VITALS: BP 150/67
--- NOTE | 2018-11-20 10:30 | NUR ---
AT BEDSIDE FOR AM ROUNDS. DISCUSSED PD WITH PATIENT. PATIENT TOLERATING PD WELL AT THIS TIME. NO DISTRESS.
--- NOTE | 2018-11-20 11:03 | NUR ---
MEDICATED FOR NAUSEA. NO DISTRESS.
[2018-11-20 12:11] VITALS: BP 153/74
--- NOTE | 2018-11-20 14:12 | NUR ---
TOLERATED PD WELL. NO DISTRESS. FAMILY AT BEDSIDE.
[2018-11-20 15:39] VITALS: BP 144/71
--- NOTE | 2018-11-20 19:37 | NUR ---
RECIEVED BEDSIDE REPORT FROM ONEAL DICKEY. PT LAYING IN BED RESTING WITH EYES CLOSED. RR EVEN AND UNLABORED. NO S/S OF DISTRESS. BED LOW CALL LIGHT WITHIN REACH. WILL CONTINUE TO MONITOR.
[2018-11-20 20:00] VITALS: BP 155/74
--- NOTE | 2018-11-20 22:00 | NUR ---
STARTED PT PD DIALYSIS. PT LAYING IN BED ALERT AND ORIENTED. NO COMPAINTS AT THIS TIME. WILL CONTINUE TO MONITOR.
--- NOTE | 2018-11-20 22:20 | NUR ---
PT PD DONE. FILLED 2,000ML. PT TOLERTATED WELL. NO FURTER NEEDS OR COMPLAINTS AT THIS TIME. WILL CONTINUE TO MONITOR.
[2018-11-21] VITALS: BP 163/72
--- NOTE | 2018-11-21 03:31 | NUR ---
PT RESTING IN BED WITH EYES CLOSED. RR EVEN AND UNLABORED. BED LOW CALL LIGHT WITHIN REACH. WILL CONTINUE TO MONITOR.
--- NOTE | 2018-11-21 03:51 | NUR ---
I have reviewed this patient and I concur with the Shift Assessment completed by the Licensed Practical Nurse today this shift.
[2018-11-21 04:00] VITALS: BP 138/72
[2018-11-21 04:28] LABS: BASOPHILS 0 % (0-2); EOSINOPHILS 2.8 % (0-7); HEMATOCRIT 27.3 % (36.0-48.0); HEMOGLOBIN 8.6 g/dL (12-16); IMMATURE GRANULOCYTES 1.2 % (0-5); MCH 29.4 pg (26.0-34.0); MCHC 31.5 g/dL (31.0-37.0); MCV 93.2 fL (80.0-100.0); MEAN PLATELET VOLUME 9.3 fL (7.4-10.4); MONOCYTES 5.5 % (2-11); NEUTROPHILS 78.5 % (40-80); PLATELET COUNT 250 10x3/uL (130-400); RBC 2.93 10x6/uL (4.00-5.40); RDW 14.8 % (11.5-14.5); WBC 7.8 10x3/uL (4.8-10.8)
[2018-11-21 05:11] LABS: ANION GAP 20.2 mmol/L (8-16); CARBON DIOXIDE 25.6 mmol/L (21.0-32.0); CREATININE - SERUM 19.7 mg/dL (0.6-1.3); POTASSIUM - SERUM 3.8 mmol/L (3.5-5.1)
[2018-11-21 05:12] LABS: CALCIUM 5.9 mg/dL (8.5-10.1); PHOSPHOROUS 9.5 mg/dL (2.5-4.9)
[2018-11-21] MEDS ORDERED: BACTRIM 400/80 MG TA PO (07:17)
[2018-11-21] MEDS ORDERED: PHENERGAN25 M1 PO (07:17)
[2018-11-21] MEDS ORDERED: LOPRESSOR25 MG PO (07:18)
[2018-11-21] MEDS ORDERED: NORVASC2.5 MG PO (07:18)
--- NOTE | 2018-11-21 07:30 | NUR ---
REPORT RECIEVED. PT LYING ON LEFT SIDE. RR EVEN AND UNLABORED. PT STATES SHE IS READY TO GO HOME. PT HAS A L AC PIV THAT IS SL. BED LOCKED AND IN LOWEST POSITION, CALL LIGHT WITHIN REACH. WILL CTM
--- NOTE | 2018-11-21 08:30 | NUR ---
WHEN ASKED IF PATIENT WANTS A FLU SHOT SHE STATES THAT SHE WILL FOLLOW UP WITH HER PRIMARY DO IT.
--- NOTE | 2018-11-21 08:56 | MORECARE ---
CASE MANAGEMENT DISCHARGE SUMMARY PATIENT: TRINIDAD FLORES UNIT: [id number] ADM DATE: 11/16/18 AGE: 33 : 83 SEX: F ROOM/BED: D.2974 AUTHOR: LARRY PERSAUD PHYSICIAN: REFERRING PHYSICIAN: CHE MCCOY DO DATE OF SERVICE: 11/21/18 Discharge Plan Patient Name: TRINIDAD FLORES Facility[facility] : 1985 Planned Disposition: Home Anticipated Discharge Date: 11/21/18 Discharge Date: Expected LOS: 5 Initial Reviewer: [email or web address] Initial Review Date: 11/16/2018 Generated: 11/21/18 9:56 am Comments DCP- Discharge Planning Updated by [email or web address]: Shady Avendano on 11/21/18 7:[address] Patient Name: TRINIDAD FLORES Encounter No: [id number] : 1985 Primary Insurance: MEDICARE A & B Anticipated DC Date: 11-21-2018 Planned Disposition: Home DCP follow-up note: CM MET WITH PT IN ROOM TO DISCUSS DISCHARGE NEEDS AND PLANNING. CM DISCUSSED AVAILABILITY OF HOME HEALTH, REHAB SERVICES AND MEDICAL EQUIPMENT. PT DENIES DISCHARGE NEEDS. PT'S MOTHER TO TRANSPORT HOME AT DISCHARGE. PT REPORTS HER MOTHER WILL NOT BE HERE UNTIL THIS AFTERNOON. IMPORTANT MESSAGE FROM MEDICARE PROVIDED AND EXPLAINED. AUDIOVISUAL EQUIPMENT OPERATOR NURSE NOTIFIED. MARIETTA Callahan DCP- Discharge Planning Updated by [id number]: Sonia Villarreal on 11/16/18 5:[address] Patient Name: TRINIDAD FLORES Admission Status: ER Accout number: [id number] Admission Date: 11-16-2018 : 1985 Admission Diagnosis: Attending: KIARRA Current LOS: 1 Anticipated DC Date: Planned Disposition: Home Primary Insurance: MEDICARE A & B Discharge Planning Comments: CM met with patient to complete initial dc planning assessment. CM educated patient on the CM role and verbal consent given by patient to complete assessment. Patient lives at home with her father where she is independent with her care. At discharge patient plans to return home and feels this is a safe discharge. CM discussed availability of home health, rehab services, and medical equipment. Patient is on daily PD. Patient denied known discharge needs at this time. CM will continue to follow and will assist as needed with dc plans/needs. Lump Machine Operator: Sonia Villarreal DCPIA - Discharge Planning Initial Assessment Updated by [email or web address]: Sonia Villarreal on 11/16/18 6:21 pm * Is the patient Alert and Oriented? Yes * How many steps to enter\exit or inside your home? * PCP NO PCP - SEEN BY NEPHROLOGY * Pharmacy [facility] * Preadmission Environment Home with Family * ADLs Independent * Other Equipment PD SUPPLIES * List name and contact numbers for known caregivers / representatives who currently or will assist patient after discharge: ISAAK MARIE - FATHER- [phone] * Verbal permission to speak to the caregivers and representatives has been obtained from the patient. Yes * Community resources currently utilized None * Additional services required to return to the preadmission environment? No * Can the patient safely return to the preadmission environment? Yes * Has this patient been hospitalized within the prior 30 days at any hospital? No Coverage Notice Reviewer: [email or web address] Shawna Avendano Notice Issued Date-Time: 11/21/2018 8:40 Notice Type: IM Discharge Notice Notice Delivered To: Patient Relationship to Patient: Design Sales Consultant Name: Delivery Method: HAND - Hand Delivered [place] Days: Prior Verbal Notification: Recipient Understood Notice: Yes Recipient Signature: Yes Med Rec Note Co-signed by Attending: Coverage Notice Comment: Last DP export: 11/16/18 5:27 p Patient Name: TRINIDAD FLORES Page [id number] at 0856 All edits/amendments must be made on the electronic document DICTATION DATE: 11/21/18855 ENGINE ASSEMBLER: CLARIBEL 11/21/18 0856 RPT#: [id number] DC DATE: STATUS: ADM IN [facility] [address] [place] [address] END OF REPORT
[2018-11-21 09:28] VITALS: BP 145/65
--- NOTE | 2018-11-21 11:45 | NUR ---
I have reviewed this patient and I concur with the Shift Assessment completed by the Licensed Practical Nurse today this shift.
== END 2018-11-21 20:54 | disposition home or self-care (01) | DRG 919 ==
LOC: D.ER 20:41 → D.M2 11-16 00:10 → D.ICU 11-16 00:10 → D.M2 11-17 15:52
PROVIDERS: Family Medicine; Internal Medicine Nephrology; ADMIT Internal Medicine; ATTEND Internal Medicine
DX: T85.71XA Infection and inflammatory reaction due to peritoneal dialysis catheter, initial encounter (principal); N18.6 End stage renal disease; K65.9 Peritonitis, unspecified; D68.51 Activated protein C resistance; Z16.24 Resistance to multiple antibiotics; I13.2 Hypertensive heart and chronic kidney disease with heart failure and with stage 5 chronic kidney disease, or end stage renal disease; Y84.9 Medical procedure, unspecified as the cause of abnormal reaction of the patient, or of later complication, without mention of misadventure at the time of the procedure; I16.0 Hypertensive urgency; R10.9 Unspecified abdominal pain; I50.9 Heart failure, unspecified; Z99.2 Dependence on renal dialysis; E87.5 Hyperkalemia; K59.09 Other constipation; B96.89 Other specified bacterial agents as the cause of diseases classified elsewhere